=== PATIENT | male | born 1950 | race Caucasian/White ===

== ENCOUNTER → 2018-12-15 | Outpatient (CLI) | payer MEDICARE, OTHER ==
[~2018-12-15] MED LIST: DOC250 PO; HYDACE5 PO; LANTUS; METF500 PO; NATE60 PO; OXYACE5T PO; RXOXYACE PO; SITA25T2 PO; TAMS.4ER PO; VITS; ZOLP10 PO; [UNRECOGNIZED DRUG - REMARK]
== END | disposition home or self-care (01) ==
LOC: LAB SHORT 09:22 → LAB EV 09:22
DX: L03.032 Cellulitis of left toe (principal)
CPT/HCPCS: 87070; 87205

== ENCOUNTER → 2021-11-21 | Outpatient (CLI) | payer MEDICARE, OTHER | END | disposition home or self-care (01) | LOC: LAB SHORT 11:00 | DX: E11.40 Type 2 diabetes mellitus with diabetic neuropathy, unspecified (principal); E11.22 Type 2 diabetes mellitus with diabetic chronic kidney disease; I12.9 Hypertensive chronic kidney disease with stage 1 through stage 4 chronic kidney disease, or unspecified chronic kidney disease; N18.9 Chronic kidney disease, unspecified ==

== ENCOUNTER → 2022-03-06 | Outpatient (CLI) | payer MEDICARE, OTHER ==
[2022-03-06 10:53] LABS: Source, Urine Clean Catch
[2022-03-06 13:17] LABS: Appearance, Urine Clear (Clear); Bilirubin, Urine Neg (Neg); Blood, Urine 1+ (Neg); Color, Urine Yellow (P-Yellow); Glucose Qualitative, Urine 3+ (Neg); Ketones, Urine Neg (Neg); Leukocyte Esterase, Urine Neg (Neg); Nitrite, Urine Neg (Neg); Protein, Urine 1+ (Neg); Specific Gravity, Urine 1.025 (1.003-1.022); Urobilinogen, Urine NORM (Normal)
[2022-03-06 13:39] LABS: Bacteria Few /hpf; Squamous Epithelial Cells Rare /hpf (Few)
[2022-03-06 13:40] LABS: Yeast/Fungi Urine Rare /hpf
== END | disposition home or self-care (01) ==
LOC: LAB 10:48 → LAB SHORT 10:48
PROVIDERS: Internal Medicine
DX: R30.0 Dysuria (principal)
CPT/HCPCS: 81001

== ENCOUNTER → 2022-12-04 | Outpatient (CLI) | payer MEDICARE, OTHER ==
[~2022-12-04] MED LIST changes: +ATORVASTATIN CA20 MG PO; +BASAGLAR K100 UNIT/3 SC; +CARBIDOPA-LEVO1 EA15 PO; +DONEPEZIL HCL10 M1 PO; +MEMA10 PO; +ONDA4ODT MM; +PAXLOVID 150-11 EACH PO
[2022-12-04 11:43] LABS: BASOPHILS ABSOLUTE AUTO 0.02 K/mm3 (0.00-0.23); BASOPHILS PERCENT AUTO 0 % (0-2)
[2022-12-04 11:54] LABS: EOSINOPHILS ABSOLUTE AUTO 0.04 K/mm3 (0.00-0.68); EOSINOPHILS PERCENT AUTO 1 % (0-6); Hematocrit 38.2 % (37.0-53.0); Hemoglobin 13.1 g/dL (13.5-17.5); IMMATURE GRAN ABSOLUTE AUTO 0.02 K/mm3 (0.00-0.10); IMMATURE GRAN PERCENT AUTO 0 % (0-1); LYMPHOCYTES ABSOLUTE AUTO 0.93 K/mm3 (0.84-5.20); LYMPHOCYTES PERCENT AUTO 11 % (21-46); MONOCYTES ABSOLUTE AUTO 0.73 K/mm3 (0.16-1.47); MONOCYTES PERCENT AUTO 9 % (4-13); Mean Corpuscular HGB 28.7 pg (26.0-34.0); Mean Corpuscular HGB Conc 34.3 g/dL (31.5-36.5); Mean Corpuscular Volume 84 fL (80-100); Mean Platelet Volume 11.1 fL (9.1-12.4); NEUTROPHILS ABSOLUTE AUTO 6.39 K/mm3 (1.96-9.15); NEUTROPHILS PERCENT AUTO 79 % (41-73); Platelet Count 170 K/mm3 (150-400); RDW Coefficient Variation 13.4 % (11.7-14.2); Red Blood Cell Count 4.56 M/mm3 (4.30-5.90); White Blood Cell Count 8.13 K/mm3 (4.00-11.30)
[2022-12-04 12:05] LABS: Albumin, Blood 3.9 g/dL (3.4-5.0); Bilirubin, Total 0.7 mg/dL (0.1-1.0); Creatinine, Blood 1.82 mg/dL (0.60-1.20); Globulin, Blood 3.9 g/dL (2.2-4.0); Potassium, Blood 3.9 mmol/L (3.5-5.5); Total Protein, Blood 7.8 g/dL (6.4-8.2)
== END | disposition home or self-care (01) ==
LOC: LAB SHORT 11:12 → LAB 11:12
PROVIDERS: Nurse Practitioner Family
DX: R30.0 Dysuria (principal); R53.83 Other fatigue
CPT/HCPCS: 80053; 85025; 87086

== ENCOUNTER 2022-12-05 21:49 | Emergency (ER) | payer MEDICARE, OTHER ==
[~2022-12-05] VITALS: Ht 177.8 cm; Wt 77.1 kg
[~2022-12-05 21:49] MED LIST changes: -ATORVASTATIN CA20 MG PO; -BASAGLAR K100 UNIT/3 SC; -CARBIDOPA-LEVO1 EA15 PO; -DONEPEZIL HCL10 M1 PO; -MEMA10 PO; -ONDA4ODT MM; -PAXLOVID 150-11 EACH PO
[2022-12-05 22:15] LABS: BASOPHILS ABSOLUTE AUTO 0.03 K/mm3 (0.00-0.23); BASOPHILS PERCENT AUTO 1 % (0-2); EOSINOPHILS ABSOLUTE AUTO 0.02 K/mm3 (0.00-0.68); EOSINOPHILS PERCENT AUTO 0 % (0-6); Hematocrit 33.6 % (37.0-53.0); Hemoglobin 11.4 g/dL (13.5-17.5); IMMATURE GRAN ABSOLUTE AUTO 0.02 K/mm3 (0.00-0.10); IMMATURE GRAN PERCENT AUTO 0 % (0-1); LYMPHOCYTES ABSOLUTE AUTO 1.42 K/mm3 (0.84-5.20); LYMPHOCYTES PERCENT AUTO 24 % (21-46); MONOCYTES ABSOLUTE AUTO 0.81 K/mm3 (0.16-1.47); MONOCYTES PERCENT AUTO 14 % (4-13); Mean Corpuscular HGB 28.8 pg (26.0-34.0); Mean Corpuscular HGB Conc 33.9 g/dL (31.5-36.5); Mean Corpuscular Volume 85 fL (80-100); Mean Platelet Volume 10.2 fL (9.1-12.4); NEUTROPHILS ABSOLUTE AUTO 3.72 K/mm3 (1.96-9.15); NEUTROPHILS PERCENT AUTO 62 % (41-73); Platelet Count 143 K/mm3 (150-400); RDW Coefficient Variation 13.3 % (11.7-14.2); RDW Standard Deviation 41.7 fL (35.1-46.3); Red Blood Cell Count 3.96 M/mm3 (4.30-5.90); White Blood Cell Count 6.02 K/mm3 (4.00-11.30)
[2022-12-05 22:30] LABS: Source, Urine Straight Cath
[2022-12-05 22:32] LABS: Bilirubin, Urine Neg (Neg); Blood, Urine 2+ (Neg); Glucose Qualitative, Urine 2+ (Neg); Ketones, Urine Neg (Neg); Leukocyte Esterase, Urine Neg (Neg); Nitrite, Urine Neg (Neg); Protein, Urine 2+ (Neg); Specific Gravity, Urine 1.025 (1.003-1.022); Urobilinogen, Urine NORM (Normal)
[2022-12-05 22:37] LABS: Appearance, Urine Clear (Clear); Color, Urine Yellow (P-Yellow)
[2022-12-05 22:41] LABS: Amorphous Mod (0-Heavy); Bacteria Rare /hpf; Mucus Light (0-Heavy); Red Blood Cells, Urine 0-2 /hpf (0-2); Squamous Epithelial Cells Rare /hpf (Few); White Blood Cells, Urine 0-2 /hpf (0-5)
[2022-12-05 22:42] LABS: Albumin, Blood 3.3 g/dL (3.4-5.0); Bilirubin, Total 0.4 mg/dL (0.1-1.0); Bun/Creatinine Ratio 18.8 (12.0-20.0); Calcium, Blood 8.4 mg/dL (8.5-10.1); Creatinine, Blood 2.02 mg/dL (0.60-1.20); Globulin, Blood 3.4 g/dL (2.2-4.0); Potassium, Blood 3.8 mmol/L (3.5-5.5); Thyroid Stimulating Hormone 3.94 uIU/mL (0.360-4.800); Total Protein, Blood 6.7 g/dL (6.4-8.2)
[2022-12-05] MEDS ORDERED: ATORVASTATIN CA20 MG PO (23:17)
[2022-12-05] MEDS ORDERED: MEMA10 PO (23:17)
[2022-12-05] MEDS ORDERED: DONEPEZIL HCL10 M1 PO (23:18)
[2022-12-05] MEDS ORDERED: BASAGLAR K100 UNIT/3 SC (23:19)
[2022-12-05] MEDS ORDERED: CARBIDOPA-LEVO1 EA15 PO (23:19)
[2022-12-06 00:30] VITALS: BP 152/76
[2022-12-06] MEDS ORDERED: PAXLOVID 150-11 EACH PO (00:33)
[2022-12-06] MEDS ORDERED: ONDA4ODT MM (00:33)
== END 2022-12-06 01:00 | disposition home or self-care (01) ==
LOC: ER 21:49
PROVIDERS: Emergency Medicine
DX: S09.90XA Unspecified injury of head, initial encounter (principal); S62.397A Other fracture of fifth metacarpal bone, left hand, initial encounter for closed fracture; U07.1 COVID-19; R40.4 Transient alteration of awareness; W19.XXXA Unspecified fall, initial encounter; Z91.09 Other allergy status, other than to drugs and biological substances; Z88.0 Allergy status to penicillin; Z79.84 Long term (current) use of oral hypoglycemic drugs; Z79.899 Other long term (current) drug therapy; E11.9 Type 2 diabetes mellitus without complications; E78.5 Hyperlipidemia, unspecified; I10 Essential (primary) hypertension
CPT/HCPCS: 29125; 51701; 70450; 71045; 73130; 80053; 81001; 82140; 84443; 85025; 93005; 93010; 96374-59; 99285-25; J2405; J7030

== ENCOUNTER 2023-01-22 16:00 | Emergency (ER) | payer MEDICARE, OTHER ==
[~2023-01-22] VITALS: Ht 172.7 cm; Wt 70.3 kg
[~2023-01-22 16:00] MED LIST changes: +ATORVASTATIN CA20 MG PO; +BASAGLAR K100 UNIT/3 SC; +CARBIDOPA-LEVO1 EA15 PO; +DONEPEZIL HCL10 M1 PO; +MEMA10 PO; +ONDA4ODT MM; +PAXLOVID 150-11 EACH PO
[2023-01-22 16:08] VITALS: BP 132/82
== END 2023-01-22 18:51 | disposition home or self-care (01) ==
LOC: ER 16:00
DX: S01.81XA Laceration without foreign body of other part of head, initial encounter (principal); S01.01XA Laceration without foreign body of scalp, initial encounter; S01.20XA Unspecified open wound of nose, initial encounter; S62.395D Other fracture of fourth metacarpal bone, left hand, subsequent encounter for fracture with routine healing; S62.397D Other fracture of fifth metacarpal bone, left hand, subsequent encounter for fracture with routine healing; E11.9 Type 2 diabetes mellitus without complications; I10 Essential (primary) hypertension; G20.A1 Parkinson's disease without dyskinesia, without mention of fluctuations; G30.9 Alzheimer's disease, unspecified; F02.80 Dementia in other diseases classified elsewhere, unspecified severity, without behavioral disturbance, psychotic disturbance, mood disturbance, and anxiety; Z23 Encounter for immunization; Z91.041 Radiographic dye allergy status; Z88.0 Allergy status to penicillin; Z79.4 Long term (current) use of insulin; Z79.899 Other long term (current) drug therapy; W19.XXXA Unspecified fall, initial encounter; X58.XXXD Exposure to other specified factors, subsequent encounter; Y93.K1 Activity, walking an animal
CPT/HCPCS: 12011; 70450; 72125; 73130; 90471; 90715; 99284-25

== ENCOUNTER → 2023-02-01 | Outpatient (CLI) | payer MEDICARE, OTHER ==
[2023-02-01 19:50] LABS: BASOPHILS ABSOLUTE AUTO 0.03 K/mm3 (0.00-0.23); BASOPHILS PERCENT AUTO 1 % (0-2); EOSINOPHILS ABSOLUTE AUTO 0.23 K/mm3 (0.00-0.68); EOSINOPHILS PERCENT AUTO 4 % (0-6); Hematocrit 34.2 % (37.0-53.0); Hemoglobin 11.8 g/dL (13.5-17.5); IMMATURE GRAN ABSOLUTE AUTO 0.01 K/mm3 (0.00-0.10); IMMATURE GRAN PERCENT AUTO 0 % (0-1); LYMPHOCYTES ABSOLUTE AUTO 1.72 K/mm3 (0.84-5.20); LYMPHOCYTES PERCENT AUTO 29 % (21-46); MONOCYTES PERCENT AUTO 7 % (4-13); Mean Corpuscular HGB 29.2 pg (26.0-34.0); Mean Corpuscular HGB Conc 34.5 g/dL (31.5-36.5); Mean Corpuscular Volume 85 fL (80-100); Mean Platelet Volume 10.8 fL (9.1-12.4); NEUTROPHILS ABSOLUTE AUTO 3.54 K/mm3 (1.96-9.15); NEUTROPHILS PERCENT AUTO 60 % (41-73); Platelet Count 238 K/mm3 (150-400); RDW Coefficient Variation 13.4 % (11.7-14.2); RDW Standard Deviation 41.7 fL (35.1-46.3); Red Blood Cell Count 4.04 M/mm3 (4.30-5.90); White Blood Cell Count 5.93 K/mm3 (4.00-11.30)
[2023-02-01 20:30] LABS: Albumin, Blood 3.6 g/dL (3.4-5.0); Albumin/Globulin Ratio 1.1 (0.8-1.8); Bilirubin, Total 0.3 mg/dL (0.1-1.0); Bun/Creatinine Ratio 19.7 (12.0-20.0); Calcium, Blood 8.8 mg/dL (8.5-10.1); Creatinine, Blood 1.88 mg/dL (0.60-1.20); Globulin, Blood 3.3 g/dL (2.2-4.0); Magnesium, Blood 1.8 mg/dL (1.6-2.4); Potassium, Blood 3.9 mmol/L (3.5-5.5); Total Protein, Blood 6.9 g/dL (6.4-8.2)
== END ==
LOC: LAB SHORT 18:40 → LAB 18:40
PROVIDERS: Hospitalist
DX: G93.41 Metabolic encephalopathy (principal); R32 Unspecified urinary incontinence
CPT/HCPCS: 80053; 83735; 85025; 87086

== ENCOUNTER 2023-02-08 11:07 | Emergency (ER) | payer MEDICARE, OTHER ==
[~2023-02-08] VITALS: Ht 177.8 cm; Wt 83.9 kg
[2023-02-08 12:13] LABS: BASOPHILS ABSOLUTE AUTO 0.03 K/mm3 (0.00-0.23); BASOPHILS PERCENT AUTO 0 % (0-2); EOSINOPHILS ABSOLUTE AUTO 0.04 K/mm3 (0.00-0.68); EOSINOPHILS PERCENT AUTO 1 % (0-6); Hematocrit 38.3 % (37.0-53.0); Hemoglobin 12.7 g/dL (13.5-17.5); IMMATURE GRAN ABSOLUTE AUTO 0.02 K/mm3 (0.00-0.10); IMMATURE GRAN PERCENT AUTO 0 % (0-1); LYMPHOCYTES ABSOLUTE AUTO 1.12 K/mm3 (0.84-5.20); LYMPHOCYTES PERCENT AUTO 15 % (21-46); MONOCYTES ABSOLUTE AUTO 0.45 K/mm3 (0.16-1.47); MONOCYTES PERCENT AUTO 6 % (4-13); Mean Corpuscular HGB 28.3 pg (26.0-34.0); Mean Corpuscular HGB Conc 33.2 g/dL (31.5-36.5); Mean Corpuscular Volume 85 fL (80-100); Mean Platelet Volume 10.3 fL (9.1-12.4); NEUTROPHILS ABSOLUTE AUTO 5.96 K/mm3 (1.96-9.15); NEUTROPHILS PERCENT AUTO 78 % (41-73); Platelet Count 249 K/mm3 (150-400); RDW Coefficient Variation 13.1 % (11.7-14.2); RDW Standard Deviation 40.7 fL (35.1-46.3); Red Blood Cell Count 4.49 M/mm3 (4.30-5.90); White Blood Cell Count 7.62 K/mm3 (4.00-11.30)
[2023-02-08 12:25] LABS: Albumin, Blood 4.2 g/dL (3.4-5.0); Bilirubin, Total 0.6 mg/dL (0.1-1.0); Bun/Creatinine Ratio 17.9 (12.0-20.0); Calcium, Blood 9.4 mg/dL (8.5-10.1); Creatinine, Blood 2.01 mg/dL (0.60-1.20); Potassium, Blood 3.8 mmol/L (3.5-5.5); Total Protein, Blood 8.2 g/dL (6.4-8.2)
[2023-02-08 13:24] LABS: Source, Urine Straight Cath
[2023-02-08 13:29] LABS: Appearance, Urine Clear (Clear); Bilirubin, Urine Neg (Neg); Blood, Urine 4+ (Neg); Color, Urine Yellow (P-Yellow); Glucose Qualitative, Urine 3+ (Neg); Ketones, Urine Neg (Neg); Leukocyte Esterase, Urine Neg (Neg); Nitrite, Urine Neg (Neg); Protein, Urine 2+ (Neg); Specific Gravity, Urine 1.015 (1.003-1.022); Urobilinogen, Urine NORM (Normal)
[2023-02-08 13:43] LABS: Bacteria Not Seen /hpf; Squamous Epithelial Cells Not Seen /hpf (Few); White Blood Cells, Urine Not Seen /hpf (0-5)
[2023-02-08 16:00] VITALS: BP 138/79
== END 2023-02-08 16:18 | disposition home or self-care (01) ==
LOC: ER 11:07
PROVIDERS: Emergency Medicine
DX: S09.90XA Unspecified injury of head, initial encounter (principal); F03.90 Unspecified dementia, unspecified severity, without behavioral disturbance, psychotic disturbance, mood disturbance, and anxiety; G20.C Parkinsonism, unspecified; W18.30XA Fall on same level, unspecified, initial encounter; Z91.041 Radiographic dye allergy status; Z88.0 Allergy status to penicillin; Z79.4 Long term (current) use of insulin; E11.9 Type 2 diabetes mellitus without complications; I10 Essential (primary) hypertension; E78.5 Hyperlipidemia, unspecified
CPT/HCPCS: 51701; 70450; 80053; 81001; 84484; 85025; 93005; 93010; 99285-25

== ENCOUNTER 2023-03-14 16:30 | Emergency (ER) | payer MEDICARE, OTHER ==
[~2023-03-14] VITALS: Ht 180.3 cm; Wt 77.1 kg
[2023-03-14 16:40] VITALS: BP 142/85
[2023-03-14 17:18] LABS: BASOPHILS ABSOLUTE AUTO 0.03 K/mm3 (0.00-0.23); BASOPHILS PERCENT AUTO 1 % (0-2); EOSINOPHILS ABSOLUTE AUTO 0.13 K/mm3 (0.00-0.68); EOSINOPHILS PERCENT AUTO 3 % (0-6); Hemoglobin 10.9 g/dL (13.5-17.5); IMMATURE GRAN ABSOLUTE AUTO 0.01 K/mm3 (0.00-0.10); IMMATURE GRAN PERCENT AUTO 0 % (0-1); LYMPHOCYTES ABSOLUTE AUTO 1.27 K/mm3 (0.84-5.20); LYMPHOCYTES PERCENT AUTO 24 % (21-46); MONOCYTES ABSOLUTE AUTO 0.36 K/mm3 (0.16-1.47); MONOCYTES PERCENT AUTO 7 % (4-13); Mean Corpuscular HGB 28.7 pg (26.0-34.0); Mean Corpuscular Volume 87 fL (80-100); Mean Platelet Volume 10.4 fL (9.1-12.4); NEUTROPHILS ABSOLUTE AUTO 3.43 K/mm3 (1.96-9.15); NEUTROPHILS PERCENT AUTO 66 % (41-73); Platelet Count 221 K/mm3 (150-400); RDW Coefficient Variation 13.4 % (11.7-14.2); RDW Standard Deviation 42.1 fL (35.1-46.3); White Blood Cell Count 5.23 K/mm3 (4.00-11.30)
[2023-03-14 17:23] LABS: Albumin, Blood 3.3 g/dL (3.4-5.0); Bilirubin, Total 0.3 mg/dL (0.1-1.0); Bun/Creatinine Ratio 19.1 (12.0-20.0); Calcium, Blood 8.3 mg/dL (8.5-10.1); Creatinine, Blood 1.88 mg/dL (0.60-1.20); Globulin, Blood 3.3 g/dL (2.2-4.0); Potassium, Blood 4.4 mmol/L (3.5-5.5); Total Protein, Blood 6.6 g/dL (6.4-8.2)
== END 2023-03-14 18:30 | disposition home or self-care (01) ==
LOC: ER 16:30
PROVIDERS: Student in an Organized Health Care Education/Training Program
DX: E11.65 Type 2 diabetes mellitus with hyperglycemia (principal); I10 Essential (primary) hypertension; E78.5 Hyperlipidemia, unspecified; G20.A1 Parkinson's disease without dyskinesia, without mention of fluctuations; G30.9 Alzheimer's disease, unspecified; F02.80 Dementia in other diseases classified elsewhere, unspecified severity, without behavioral disturbance, psychotic disturbance, mood disturbance, and anxiety; Z79.899 Other long term (current) drug therapy; Z79.4 Long term (current) use of insulin; Z88.0 Allergy status to penicillin; Z88.8 Allergy status to other drugs, medicaments and biological substances; Z91.041 Radiographic dye allergy status
CPT/HCPCS: 80053; 82947; 85025; 93005; 93010; 99285-25

== ENCOUNTER → 2023-04-26 | Outpatient (CLI) | payer MEDICARE, OTHER ==
[2023-04-28 11:25] LABS: Appearance, Urine Clear (Clear); Bilirubin, Urine Neg (Neg); Blood, Urine 1+ (Neg); Color, Urine Yellow (P-Yellow); Glucose Qualitative, Urine 3+ (Neg); Ketones, Urine Neg (Neg); Leukocyte Esterase, Urine Neg (Neg); Nitrite, Urine Neg (Neg); Protein, Urine 1+ (Neg); Urobilinogen, Urine NORM (Normal)
[2023-04-28 11:44] LABS: Amorphous Light (0-Heavy); Bacteria Rare /hpf; Mucus Light (0-Heavy); Squamous Epithelial Cells Rare /hpf (Few); White Blood Cells, Urine 0-2 /hpf (0-5)
[2023-04-28 11:45] LABS: Hyaline Casts 0-2 /lpf (0-2); Triple Phosphate Crystals Rare /hpf
== END ==
LOC: LAB SHORT 19:15 → LAB 19:15
PROVIDERS: Internal Medicine
DX: N39.0 Urinary tract infection, site not specified (principal)
CPT/HCPCS: 81001

== ENCOUNTER → 2023-07-09 | Outpatient (CLI) | payer MEDICARE, OTHER ==
[2023-07-09 18:55] LABS: Hematocrit 35.7 % (37.0-53.0); Hemoglobin 12.2 g/dL (13.5-17.5); Mean Corpuscular HGB 29.8 pg (26.0-34.0); Mean Corpuscular HGB Conc 34.2 g/dL (31.5-36.5); Mean Corpuscular Volume 87 fL (80-100); Mean Platelet Volume 10.6 fL (9.1-12.4); Platelet Count 201 K/mm3 (150-400); RDW Coefficient Variation 13.6 % (11.7-14.2); RDW Standard Deviation 43.7 fL (35.1-46.3)
[2023-07-09 19:56] LABS: Alanine Aminotransfer (ALT/SGP 17 U/L (12-78); Albumin, Blood 3.9 g/dL (3.4-5.0); Albumin/Globulin Ratio 1.3 (0.8-1.8); Alk Phos 62 U/L (50-136); Anion Gap 8 mmol/L (3-11); Aspartate Aminotrans (AST/SGOT 28 U/L (12-37); Bilirubin, Total 0.3 mg/dL (0.1-1.0); Blood Urea Nitrogen 31 mg/dL (8-24); Bun/Creatinine Ratio 17.8 (12.0-20.0); CHOL/HDL RATIO 2.3; CO2, Blood 31 mmol/L (21-32); Calcium, Blood 9.1 mg/dL (8.5-10.1); Chloride, Blood 109 mmol/L (98-108); Cholesterol 115 mg/dL (50-200); Creatinine, Blood 1.74 mg/dL (0.60-1.20); Globulin, Blood 2.9 g/dL (2.2-4.0); Glomerular Filtration Rate 41 (60-); Glucose, Blood 183 mg/dL (70-99); HDL Cholesterol 49 mg/dL (>39); Low Density Lipoprotein Chol 51 mg/dL (0-110); Potassium, Blood 4.2 mmol/L (3.5-5.5); Sodium, Blood 144 mmol/L (136-145); Total Protein, Blood 6.8 g/dL (6.4-8.2); Triglycerides 76 mg/dL (30-160); Very Low Density Lipoprot Chol 15 mg/dL (6-32)
== END ==
LOC: LAB 18:31 → LAB SHORT 18:31
PROVIDERS: Internal Medicine
DX: E78.00 Pure hypercholesterolemia, unspecified (principal); F02.B3 Dementia in other diseases classified elsewhere, moderate, with mood disturbance; E11.65 Type 2 diabetes mellitus with hyperglycemia
CPT/HCPCS: 80053; 80061; 83036; 84443; 85027

== ENCOUNTER → 2024-01-12 | Outpatient (CLI) | payer MEDICARE, OTHER ==
[2024-01-12 19:59] LABS: Albumin, Blood 3.7 g/dL (3.4-5.0); Anion Gap 7 mmol/L (3-11); Blood Urea Nitrogen 46 mg/dL (8-24); Bun/Creatinine Ratio 25.1 (12.0-20.0); CO2, Blood 28 mmol/L (21-32); Calcium, Blood 8.8 mg/dL (8.5-10.1); Chloride, Blood 110 mmol/L (98-108); Creatinine, Blood 1.83 mg/dL (0.60-1.20); Glomerular Filtration Rate 39 (60-); Glucose, Blood 156 mg/dL (70-99); Phosphorus, Blood 3.5 mg/dL (2.5-4.9); Potassium, Blood 4.2 mmol/L (3.5-5.5); Sodium, Blood 141 mmol/L (136-145)
== END ==
LOC: LAB SHORT 17:29 → LAB 17:29
PROVIDERS: Internal Medicine
DX: E11.22 Type 2 diabetes mellitus with diabetic chronic kidney disease (principal)
CPT/HCPCS: 80069

== ENCOUNTER 2024-03-13 15:40 | Emergency (ER) | payer OTHER, MEDICARE ==
[~2024-03-13] VITALS: Ht 182.9 cm; Wt 81.7 kg
[2024-03-13] MEDS ORDERED: OLAN5 PO (18:29)
[2024-03-13 20:00] VITALS: BP 156/91
== END 2024-03-13 20:10 | disposition home or self-care (01) ==
LOC: ER 15:40
DX: R51.9 Headache, unspecified (principal); G20.A1 Parkinson's disease without dyskinesia, without mention of fluctuations; F02.80 Dementia in other diseases classified elsewhere, unspecified severity, without behavioral disturbance, psychotic disturbance, mood disturbance, and anxiety; E11.9 Type 2 diabetes mellitus without complications; I10 Essential (primary) hypertension; G30.9 Alzheimer's disease, unspecified; Z88.0 Allergy status to penicillin; Z91.041 Radiographic dye allergy status; Z79.899 Other long term (current) drug therapy; Z79.4 Long term (current) use of insulin; W01.0XXA Fall on same level from slipping, tripping and stumbling without subsequent striking against object, initial encounter
CPT/HCPCS: 70450; 72125; 82947; 99284-25

== ENCOUNTER → 2024-04-26 | Outpatient (CLI) | payer MEDICARE, OTHER ==
[~2024-04-26] MED LIST changes: +OLAN5 PO
[2024-04-26 14:33] LABS: Appearance, Urine Hazy (Clear); Bilirubin, Urine Neg (Neg); Blood, Urine 4+ (Neg); Color, Urine Yellow (P-Yellow); Glucose Qualitative, Urine Neg (Neg); Ketones, Urine Neg (Neg); Leukocyte Esterase, Urine 3+ (Neg); Nitrite, Urine Neg (Neg); Protein, Urine 3+ (Neg); Specific Gravity, Urine 1.015 (1.003-1.022); Urobilinogen, Urine NORM (Normal)
[2024-04-26 14:48] LABS: White Blood Cells, Urine 50-100 /hpf (0-5)
[2024-04-26 14:49] LABS: Bacteria Many /hpf; Renal Epithelial Rare /hpf (0-Rare); Squamous Epithelial Cells Few /hpf (Few)
== END ==
LOC: LAB 11:10 → LAB SHORT 11:10
PROVIDERS: Internal Medicine
DX: N39.0 Urinary tract infection, site not specified (principal)
CPT/HCPCS: 81001; 87077; 87086; 87186

== ENCOUNTER 2024-05-31 15:11 | Emergency (ER) | payer OTHER, MEDICARE ==
[~2024-05-31] VITALS: Ht 182.9 cm; Wt 72.6 kg
[2024-05-31 16:02] LABS: BASOPHILS ABSOLUTE AUTO 0.02 K/mm3 (0.00-0.23); BASOPHILS PERCENT AUTO 0 % (0-2); EOSINOPHILS ABSOLUTE AUTO 0.09 K/mm3 (0.00-0.68); EOSINOPHILS PERCENT AUTO 1 % (0-6); Hematocrit 34.3 % (37.0-53.0); Hemoglobin 11.4 g/dL (13.5-17.5); IMMATURE GRAN ABSOLUTE AUTO 0.03 K/mm3 (0.00-0.10); IMMATURE GRAN PERCENT AUTO 0 % (0-1); LYMPHOCYTES ABSOLUTE AUTO 1.55 K/mm3 (0.84-5.20); LYMPHOCYTES PERCENT AUTO 17 % (21-46); MONOCYTES ABSOLUTE AUTO 0.75 K/mm3 (0.16-1.47); MONOCYTES PERCENT AUTO 8 % (4-13); Mean Corpuscular HGB 29.5 pg (26.0-34.0); Mean Corpuscular HGB Conc 33.2 g/dL (31.5-36.5); Mean Corpuscular Volume 89 fL (80-100); Mean Platelet Volume 10.5 fL (9.1-12.4); NEUTROPHILS ABSOLUTE AUTO 6.75 K/mm3 (1.96-9.15); NEUTROPHILS PERCENT AUTO 73 % (41-73); Platelet Count 159 K/mm3 (150-400); RDW Coefficient Variation 13.8 % (11.7-14.2); RDW Standard Deviation 44.6 fL (35.1-46.3); Red Blood Cell Count 3.86 M/mm3 (4.30-5.90); White Blood Cell Count 9.19 K/mm3 (4.00-11.30)
[2024-05-31 16:19] LABS: Albumin, Blood 3.4 g/dL (3.4-5.0); Albumin/Globulin Ratio 0.9 (0.8-1.8); Bilirubin, Total 0.6 mg/dL (0.1-1.0); Creatinine, Blood 1.85 mg/dL (0.60-1.20); Free Thyroxine 0.79 ng/dL (0.70-1.60); Globulin, Blood 3.8 g/dL (2.2-4.0); Potassium, Blood 4.1 mmol/L (3.5-5.5); Thyroid Stimulating Hormone 2.38 uIU/mL (0.360-4.800); Total Protein, Blood 7.2 g/dL (6.4-8.2)
[2024-05-31 19:10] VITALS: BP 114/71
== END 2024-05-31 19:13 | disposition home or self-care (01) ==
LOC: ER 15:11
PROVIDERS: Emergency Medicine
DX: Z04.3 Encounter for examination and observation following other accident (principal); E11.9 Type 2 diabetes mellitus without complications; I10 Essential (primary) hypertension; E78.5 Hyperlipidemia, unspecified; G20.A1 Parkinson's disease without dyskinesia, without mention of fluctuations; G30.9 Alzheimer's disease, unspecified; F02.80 Dementia in other diseases classified elsewhere, unspecified severity, without behavioral disturbance, psychotic disturbance, mood disturbance, and anxiety; Z91.041 Radiographic dye allergy status; Z88.0 Allergy status to penicillin; Z79.4 Long term (current) use of insulin; Z79.899 Other long term (current) drug therapy; W18.30XA Fall on same level, unspecified, initial encounter
CPT/HCPCS: 70450; 71045; 72170; 80053; 84439; 84443; 85025; 99285-25

== ENCOUNTER → 2024-06-08 | Outpatient (CLI) | payer MEDICARE, OTHER ==
[2024-06-09 15:11] LABS: Appearance, Urine Hazy (Clear); Bilirubin, Urine Neg (Neg); Blood, Urine 3+ (Neg); Color, Urine Yellow (P-Yellow); Glucose Qualitative, Urine Neg (Neg); Ketones, Urine Neg (Neg); Leukocyte Esterase, Urine 3+ (Neg); Nitrite, Urine Pos (Neg); Protein, Urine 3+ (Neg); Specific Gravity, Urine 1.015 (1.003-1.022); Urobilinogen, Urine NORM (Normal)
[2024-06-09 15:25] LABS: White Blood Cells, Urine TNTC /hpf (0-5)
[2024-06-09 15:26] LABS: Bacteria Many /hpf; Squamous Epithelial Cells Not Seen /hpf (Few)
== END ==
LOC: LAB 13:49 → LAB SHORT 13:49
PROVIDERS: Internal Medicine
DX: N39.0 Urinary tract infection, site not specified (principal)
CPT/HCPCS: 81001; 87077; 87086; 87186

== ENCOUNTER → 2024-07-11 | Outpatient (CLI) | payer MEDICARE, OTHER ==
[2024-07-11 13:25] LABS: Appearance, Urine Cloudy (Clear); Bilirubin, Urine Neg (Neg); Blood, Urine 3+ (Neg); Color, Urine Yellow (P-Yellow); Glucose Qualitative, Urine Neg (Neg); Ketones, Urine Neg (Neg); Leukocyte Esterase, Urine 3+ (Neg); Nitrite, Urine Pos (Neg); Protein, Urine 2+ (Neg); Specific Gravity, Urine 1.015 (1.003-1.022); Urobilinogen, Urine NORM (Normal)
[2024-07-11 13:39] LABS: White Blood Cells, Urine 50-100 /hpf (0-5)
[2024-07-11 13:40] LABS: Bacteria Many /hpf; Mucus Light (0-Heavy); Red Blood Cells, Urine 0-2 /hpf (0-2); Squamous Epithelial Cells Rare /hpf (Few)
== END ==
LOC: LAB 12:29 → LAB SHORT 12:29
PROVIDERS: Internal Medicine
DX: N39.0 Urinary tract infection, site not specified (principal)
CPT/HCPCS: 81001; 87077; 87086; 87186

== ENCOUNTER 2024-07-17 11:04 | Inpatient (IN) | payer MEDICARE, OTHER ==
[~2024-07-17] VITALS: Ht 182.9 cm; Wt 69.4 kg
[2024-07-17 11:44] LABS: BASOPHILS ABSOLUTE AUTO 0.04 K/mm3 (0.00-0.23); BASOPHILS PERCENT AUTO 0 % (0-2); EOSINOPHILS ABSOLUTE AUTO 0.04 K/mm3 (0.00-0.68); EOSINOPHILS PERCENT AUTO 0 % (0-6); Hematocrit 36.3 % (37.0-53.0); Hemoglobin 12.2 g/dL (13.5-17.5); IMMATURE GRAN ABSOLUTE AUTO 0.06 K/mm3 (0.00-0.10); IMMATURE GRAN PERCENT AUTO 0 % (0-1); LYMPHOCYTES ABSOLUTE AUTO 1.08 K/mm3 (0.84-5.20); LYMPHOCYTES PERCENT AUTO 7 % (21-46); MONOCYTES PERCENT AUTO 6 % (4-13); Mean Corpuscular HGB 29.3 pg (26.0-34.0); Mean Corpuscular HGB Conc 33.6 g/dL (31.5-36.5); Mean Corpuscular Volume 87 fL (80-100); NEUTROPHILS ABSOLUTE AUTO 14.16 K/mm3 (1.96-9.15); NEUTROPHILS PERCENT AUTO 87 % (41-73); Platelet Count 207 K/mm3 (150-400); RDW Coefficient Variation 13.6 % (11.7-14.2); RDW Standard Deviation 43.7 fL (35.1-46.3); Red Blood Cell Count 4.16 M/mm3 (4.30-5.90); White Blood Cell Count 16.28 K/mm3 (4.00-11.30)
[2024-07-17 12:09] LABS: Source, Urine Straight Cath
[2024-07-17 12:17] LABS: Appearance, Urine Cloudy (Clear); Bilirubin, Urine Neg (Neg); Blood, Urine 4+ (Neg); Glucose Qualitative, Urine Neg (Neg); Ketones, Urine Neg (Neg); Leukocyte Esterase, Urine 3+ (Neg); Nitrite, Urine Pos (Neg); Protein, Urine 3+ (Neg); Urobilinogen, Urine NORM (Normal)
[2024-07-17 12:24] LABS: Albumin, Blood 3.4 g/dL (3.4-5.0); Albumin/Globulin Ratio 0.9 (0.8-1.8); Bilirubin, Total 0.7 mg/dL (0.1-1.0); Bun/Creatinine Ratio 20.1 (12.0-20.0); Calcium, Blood 9.2 mg/dL (8.5-10.1); Creatinine, Blood 1.64 mg/dL (0.60-1.20); Globulin, Blood 3.9 g/dL (2.2-4.0); Potassium, Blood 4.1 mmol/L (3.5-5.5); Total Protein, Blood 7.3 g/dL (6.4-8.2)
[2024-07-17 12:26] LABS: Color, Urine Pale Yellow (P-Yellow)
[2024-07-17 12:27] LABS: White Blood Cells, Urine 50-100 /hpf (0-5)
[2024-07-17 12:28] LABS: Bacteria Many /hpf; Red Blood Cells, Urine 25-50 /hpf (0-2); Squamous Epithelial Cells Not Seen /hpf (Few)
[2024-07-17] MEDS ORDERED: Piperacillin/Tazobactam Sod 3.375 GM in NS 100 ML IV ONE (13:20)
[2024-07-17] MEDS ORDERED: ACET500 PO (13:53)
[2024-07-17] MEDS ORDERED: Mucinex600 MG PO (13:54)
[2024-07-17] MEDS ORDERED: LOPE2C PO (13:55)
[2024-07-17] MEDS ORDERED: MELA3 PO (13:55)
[2024-07-17] MEDS ORDERED: MIRT30 PO (13:56)
[2024-07-17] MEDS ORDERED: PROBIOTIC1 EA15 (13:58)
[2024-07-17] MEDS ORDERED: PSYLLIUM PO (13:58)
[2024-07-17] MEDS ORDERED: NS 1,000 ML IV SCH (14:50)
[2024-07-17] MEDS ORDERED: Meropenem 1,000 MG in NS 100 ML IV SCH (15:00)
[2024-07-17 20:19] VITALS: BP 119/66
[2024-07-17] MEDS ORDERED: Lactobacil 2-S.Thermo-Bifido 1 1 Cap PO SCH (21:00)
[2024-07-18 04:20] VITALS: BP 113/59
--- NOTE | 2024-07-18 05:23 | NUR ---
SUMMARY: PT ALERT TO SELF ONLY AND IS VERY DROWSY, ROUSING TO PAINFUL STIMULI ONLY THEN QUICKLY FALLING BACK TO SLEEP. HE WAS MOSTLY NONVERBAL BUT SAID "OUCH" WHEN CBG TESTED AND "COLD" DURING [facility] C[facility]. HE'S BEDREST AT PRESENT R/T INCREASED WEAKNESS, RECENT FALLS AND HEIGHTENED AMS FROM BASELINE. HS MEDS HELD D/T NOT BEING WAKEFUL ENOUGH TO SAFELY SWALLOW. PARKINSONIAN TREMOR AND EXTREMITY SPASITICITY OBSERVED. TURN SCHEDULE MAINTAINED AND ATTENDS CHANGED PRN FOR INCONTINENCE. NS INFUSES AT 100 ML/HR AND IV ABX RECEIVED PER EMAR. NO ACUTE CHANGES, VSS/AFEBRILE. WILL REPORT TO DAY RN.
[2024-07-18 06:09] LABS: BASOPHILS ABSOLUTE AUTO 0.03 K/mm3 (0.00-0.23); BASOPHILS PERCENT AUTO 0 % (0-2); EOSINOPHILS PERCENT AUTO 0 % (0-6); Hematocrit 31.8 % (37.0-53.0); Hemoglobin 10.6 g/dL (13.5-17.5); IMMATURE GRAN ABSOLUTE AUTO 0.09 K/mm3 (0.00-0.10); IMMATURE GRAN PERCENT AUTO 1 % (0-1); LYMPHOCYTES ABSOLUTE AUTO 0.95 K/mm3 (0.84-5.20); LYMPHOCYTES PERCENT AUTO 6 % (21-46); MONOCYTES ABSOLUTE AUTO 0.84 K/mm3 (0.16-1.47); MONOCYTES PERCENT AUTO 6 % (4-13); Mean Corpuscular HGB 28.7 pg (26.0-34.0); Mean Corpuscular HGB Conc 33.3 g/dL (31.5-36.5); Mean Corpuscular Volume 86 fL (80-100); Mean Platelet Volume 9.9 fL (9.1-12.4); NEUTROPHILS ABSOLUTE AUTO 12.97 K/mm3 (1.96-9.15); NEUTROPHILS PERCENT AUTO 87 % (41-73); Platelet Count 160 K/mm3 (150-400); RDW Coefficient Variation 13.7 % (11.7-14.2); RDW Standard Deviation 43.4 fL (35.1-46.3); Red Blood Cell Count 3.69 M/mm3 (4.30-5.90); White Blood Cell Count 14.88 K/mm3 (4.00-11.30)
[2024-07-18 06:34] LABS: Bun/Creatinine Ratio 18.4 (12.0-20.0); Calcium, Blood 8.4 mg/dL (8.5-10.1); Creatinine, Blood 1.63 mg/dL (0.60-1.20); Potassium, Blood 3.6 mmol/L (3.5-5.5)
[2024-07-18] MEDS ORDERED: Acetaminophen 500 MG Tab PO PRN (06:45)
[2024-07-18] MEDS ORDERED: OLANZapine 5 MG Tab PO PRN (06:45)
[2024-07-18] MEDS ORDERED: Loperamide HCl 2 MG Cap PO PRN (06:45)
[2024-07-18] MEDS ORDERED: GuaiFENesin 600 MG TabCR PO PRN (06:45)
[2024-07-18 07:27] VITALS: BP 102/58
[2024-07-18] MEDS ORDERED: NS 1,000 ML IV SCH (08:40)
[2024-07-18] MEDS ORDERED: Levodopa/Carbidopa 100 / 25 MG Tab PO SCH (09:00)
[2024-07-18] MEDS ORDERED: Donepezil HCl 5 MG Tab PO SCH (09:00)
[2024-07-18] MEDS ORDERED: Memantine HCL 5 MG Tab PO SCH (09:00)
[2024-07-18] MEDS ORDERED: Atorvastatin 10 MG Tab PO SCH (09:00)
[2024-07-18] MEDS ORDERED: Enoxaparin 40 MG/0.4 ML SYR SC SCH (09:00)
[2024-07-18 16:01] VITALS: BP 108/64
--- NOTE | 2024-07-18 17:42 | NUR ---
PATIENT A/O TO SELF, MORE ALERT THIS AFTERNOON. AT BEDSIDE FOR MOST OF THE DAY. WORKED WITH ST AND DOES WELL WITH MEALS IF FED. MEDICATIONS CRUSHED IN APPLESAUCE. PATIENT STILL HAVING DIFFICULTY FOLLOWING COMMANDS. VSS, ON RA. NO S/S OF PAIN ASSESSED. INCONTINENT OF BOWEL/BLADDER. NO NEW CONCERNS THIS SHIFT. FALL PRECAUTIONS IN PLACE.
[2024-07-18 19:11] VITALS: BP 113/83
[2024-07-18] MEDS ORDERED: Melatonin 3 MG Tab PO SCH (21:00)
[2024-07-18] MEDS ORDERED: Mirtazapine 30 MG Tab PO SCH (21:00)
[2024-07-19 03:33] VITALS: BP 111/51
--- NOTE | 2024-07-19 06:08 | NUR ---
SHIFT SUMMARY S/P ADMIT R/T RECURRENT UTI. NO ACUTE CHANGES OVERNIGHT. VSS. MENTATION UNCHANGED FROM BEGINNING OF SHIFT, A&O TO SELF/, GROSSLY NON-VERBAL, RESPONDS TO PHYSCIAL STIMULI, UNABLE TO VERBALIZE NEEDS. TOLERATING DIET - TAKES MEDS CRUSHED IN APPLESAUCE c FREQUENT REDIRECTION. IV FLUIDS/ABX INFUSING PER EMAR. VOIDING, INCONT, ATTENDS IN USE. NO CLEAR PAIN c ASSESSMENT. BED ALARM IN USE. CALL LIGHT IN REACH, WILL REPORT TO DAY RN.
[2024-07-19 06:51] LABS: Bun/Creatinine Ratio 18.4 (12.0-20.0); Calcium, Blood 7.7 mg/dL (8.5-10.1); Creatinine, Blood 1.85 mg/dL (0.60-1.20); Potassium, Blood 4.2 mmol/L (3.5-5.5)
[2024-07-19 07:47] VITALS: BP 97/80
[2024-07-19] MEDS ORDERED: Acetaminophen 325 MG Supp PR PRN (09:25)
[2024-07-19 09:29] LABS: BASOPHILS ABSOLUTE AUTO 0.02 K/mm3 (0.00-0.23); BASOPHILS PERCENT AUTO 0 % (0-2); EOSINOPHILS ABSOLUTE AUTO 0.01 K/mm3 (0.00-0.68); EOSINOPHILS PERCENT AUTO 0 % (0-6); Hematocrit 30.3 % (37.0-53.0); Hemoglobin 9.8 g/dL (13.5-17.5); IMMATURE GRAN ABSOLUTE AUTO 0.12 K/mm3 (0.00-0.10); IMMATURE GRAN PERCENT AUTO 1 % (0-1); LYMPHOCYTES ABSOLUTE AUTO 0.53 K/mm3 (0.84-5.20); LYMPHOCYTES PERCENT AUTO 5 % (21-46); MONOCYTES ABSOLUTE AUTO 0.36 K/mm3 (0.16-1.47); MONOCYTES PERCENT AUTO 3 % (4-13); Mean Corpuscular HGB 28.2 pg (26.0-34.0); Mean Corpuscular HGB Conc 32.3 g/dL (31.5-36.5); Mean Corpuscular Volume 87 fL (80-100); NEUTROPHILS ABSOLUTE AUTO 9.63 K/mm3 (1.96-9.15); NEUTROPHILS PERCENT AUTO 90 % (41-73); Platelet Count 145 K/mm3 (150-400); RDW Coefficient Variation 13.7 % (11.7-14.2); RDW Standard Deviation 43.7 fL (35.1-46.3); Red Blood Cell Count 3.48 M/mm3 (4.30-5.90); White Blood Cell Count 10.67 K/mm3 (4.00-11.30)
--- NOTE | 2024-07-19 16:41 | NUR ---
SHIFT SUMMARY PT REMAINING ONLY RESPONSIVE TO PAINFUL AND COLD STIMULI - NOT WAKING OR OPENING EYES T/O SHIFT. NO ORAL INTAKE - MADE NPO DUE TO DECREASED LEVEL OF CONSCIOUSNESS. PALLIATIVE CARE DISCUSSED OPTIONS WITH FAMILY TODAY - FAMILY WOULD LIKE TO SEE IF PT WAKENS AND REPEAT BLOOD SULTURE RESULTS. PT IS DNR. INCONTINENT OF B/B, REMAINS ON BEDREST. ORAL CARE Q4H. REPOSITIONING Q2H. PT NO EVIDENCE OF DISCOMFORT AT REST. PT CURRENTLY SLEEPING WITH BED IN LOWEST POSITON AND CALL LIGHT WITHIN REACH. BED ALARM ON. SPOUSE AT BEDSIDE.
--- NOTE | 2024-07-19 16:51 | NUR ---
ASSESSED PATIENT THIS MORNING. AT BEDSIDE REQUESTING TO SPEAK WITH PROVIDER. PROVIDER NOTIFIED, BUT HAD TO LEAVE BEFORE PROVIDER ARRIVED. BACK THIS AFTERNOON. MILLIE STONE DISCUSSED PATIENTS DECLINE AND THE PROSPECT OF HOSPICE. CALLED OFFICE AND REQUESTED CARE FACILITY LIST, BROUGHT TO PATIENTS ROOM. CONTINUED HOSPICE CONVERSATION AND RELAYED SERVICES THAT WOULD BE PROVIDED AND DISCUSSED SHIFT IN CARE. DISCUSSED WITH PROVIDER. FAMILY WILL DISCUSS AND COME IN TOMORROW TO CONTINUE CONVERSATION
[2024-07-19 16:53] VITALS: BP 112/59
--- NOTE | 2024-07-19 17:59 | NUR ---
MEPILEX ON COCCYX CHANGED BY RN THIS SHIFT, NO OPENINGS. AREA IS DARK IN COLOR. BLANCHABLE. SPOUSE DENIES PT HAVING OLD WOUND.
[2024-07-19] MEDS ORDERED: NS 1,000 ML IV SCH (18:00)
[2024-07-19 19:17] VITALS: BP 140/96
[2024-07-20 03:11] VITALS: BP 116/90
--- NOTE | 2024-07-20 03:55 | NUR ---
SHIFT SUMMARY ADMITTED FOR TOXIC METABOLIC ENCEPHALOPATHY. DNR CODE. ISOLATION PRECAUTIONS FOR ESBL IN URINE. NPO DUE TO SOMNOLENCE. HE IS ON BEDREST. CONDOM CATHETER IN PLACE. ACHS CBG'S - NO SS. PALLIATIVE CARE IS CONSULTED. NS INFUSING ORDERED. ON RA. ANOTHER SET OF BLOOD CULTURES HAS BEEN SENT. IV ANTIB RX ARE SCHEDULED.
[2024-07-20 06:59] LABS: BASOPHILS ABSOLUTE AUTO 0.01 K/mm3 (0.00-0.23); BASOPHILS PERCENT AUTO 0 % (0-2); EOSINOPHILS ABSOLUTE AUTO 0.04 K/mm3 (0.00-0.68); EOSINOPHILS PERCENT AUTO 1 % (0-6); Hematocrit 30.3 % (37.0-53.0); Hemoglobin 9.8 g/dL (13.5-17.5); IMMATURE GRAN ABSOLUTE AUTO 0.03 K/mm3 (0.00-0.10); IMMATURE GRAN PERCENT AUTO 0 % (0-1); LYMPHOCYTES ABSOLUTE AUTO 0.58 K/mm3 (0.84-5.20); LYMPHOCYTES PERCENT AUTO 7 % (21-46); MONOCYTES ABSOLUTE AUTO 0.36 K/mm3 (0.16-1.47); MONOCYTES PERCENT AUTO 4 % (4-13); Mean Corpuscular HGB Conc 32.3 g/dL (31.5-36.5); Mean Corpuscular Volume 90 fL (80-100); Mean Platelet Volume 11.6 fL (9.1-12.4); NEUTROPHILS ABSOLUTE AUTO 7.16 K/mm3 (1.96-9.15); NEUTROPHILS PERCENT AUTO 88 % (41-73); Platelet Count 124 K/mm3 (150-400); RDW Standard Deviation 45.6 fL (35.1-46.3); Red Blood Cell Count 3.38 M/mm3 (4.30-5.90); White Blood Cell Count 8.18 K/mm3 (4.00-11.30)
[2024-07-20 07:17] LABS: Albumin, Blood 2.2 g/dL (3.4-5.0); Albumin/Globulin Ratio 0.6 (0.8-1.8); Bilirubin, Total 0.4 mg/dL (0.1-1.0); Calcium, Blood 7.9 mg/dL (8.5-10.1); Creatinine, Blood 1.5 mg/dL (0.60-1.20); Globulin, Blood 3.7 g/dL (2.2-4.0); Potassium, Blood 3.9 mmol/L (3.5-5.5); Total Protein, Blood 5.9 g/dL (6.4-8.2)
[2024-07-20 07:40] LABS: RETICULOCYTE ABSOLUTE 0.0247 M/mm3 (0.0200-0.1100); RETICULOCYTE COUNT PERCENT 0.73 % (0.50-2.50)
[2024-07-20 07:46] VITALS: BP 131/99
[2024-07-20] MEDS ORDERED: NS 1,000 ML IV SCH (08:00)
[2024-07-20 08:12] LABS: Percent Saturation 6.7 % (20.0-50.0)
--- NOTE | 2024-07-20 10:49 | NUR ---
THIS RN ATTEMPTED TO ASSESS SWALLOW PER ST RECOMMENDATIONS ON GREEN SHEET IN ROOM PER PROIVDER ORDERS. PT UNABLE TO SIP FLUIDS FROM STRAW, PT COULD NOT FOLLOW DIRECTION WHEN INSTRUCTED TO PLACE LIPS AROUND STRAW AND SUCK. RN PROVIDED ORAL CARE WITH GREEN SPONGE, PT ALSO UNABLE TO FOLLOW INSTRUCTION TO SUCK ON SPONGE. RN DOES NOT FIND PT APPROPRIATE TO SAFELY SWALLOW AT THIS TIME.
--- NOTE | 2024-07-20 11:42 | NUR ---
Met with patient and yesterday afternoon. The patient was quite somnolent yesterday, which Dr. Low attributes to bacteremia which is being treated. The patient was NPO yesterday due to the somnolence but is ok to eat when he is awake and alert. is meeting with Isma weir today to discuss hospice. However, the patient will be going to rehab for continued IV abx for 6 days. At that point, eval with hospice will be more appropriate once bacteremia is cleared. Will update [facility] and Diane with [facility].
--- NOTE | 2024-07-20 16:47 | NUR ---
SHIFT SUMMARY PT MORE ALERT AND AWAKE TODAY, ABLE TO MAKE SOME NEEDS KNOWN AND RESPONSIVE TO VERBAL STIMULI. PT DOES HAVE MOMENTS OF IRRITATION, DID THREATEN THIS RN WITH SHOTGUN. FAMILY MET WITH [facility] AND PALLIATIVE CARE TEAM, FAMILY STILL CONSIDERING OPTIONS. PLAN IS FOR PT TO POSSIBLY GO TO SNF FOR IV ANTIBIOTICS PRIOR TO [place]. ST WORKED WITH PT AND REMOVED STRAWS FROM DIET AND ADDED THICKEN LIQUIDS. PT WILL BE FEEDER. WILL ATTEMPT TO FEED PT DINNER IF AWAKE ENOUGH TO FOLLOW INSTRUCTION. PT REMAINS ON NS @ 150 ML AN HR, AFTER THIS BAG ADMINISTERED IV WILL BE SALINE LOCKED. MEPILEX ON COCCYX REMAINS C/D/I. CONDOM CATH CHANGED TODAY, PATENT AND DRAINING CLEAR YELLOW URINE. SCD IN PLACE. BED ALARM ON. PT SLEEPING WITH BED IN LOWEST POSITON AND CALL LIGHT WITHIN REACH. PT DOES NOT USE CALL LIGHT APPROPRIATELY.
[2024-07-20 17:00] VITALS: BP 158/109
[2024-07-20 20:00] VITALS: BP 154/97
[2024-07-21 02:16] VITALS: BP 164/85
--- NOTE | 2024-07-21 04:24 | NUR ---
SHIFT SUMMARY ADMITTED FOR TOXIC METABOLIC ENCEPHALOPATHY. DNR CODE. FOUND TO HAVE A UTI. CONTACT [facility] FOR ESBL IN THE URINE. CONDOM CATHETER IN PLACE. HE IS ON BEDREST. HE IS ON AN ADA DIET, EXCEPT WHEN HE IS NOT ALERT. ACHS - CBG'S. ON RA. A&O TO SELF AND FAMILY. IV ANTIB RX ARE SCHEDULED. PLAN IS FOR PLACEMENT AT [facility] TO FINISH ANTIB RX, FOLLOWED BY A RETURN TO [place].
[2024-07-21 06:26] LABS: BASOPHILS ABSOLUTE AUTO 0.01 K/mm3 (0.00-0.23); BASOPHILS PERCENT AUTO 0 % (0-2); EOSINOPHILS PERCENT AUTO 3 % (0-6); Hematocrit 27.6 % (37.0-53.0); Hemoglobin 9.1 g/dL (13.5-17.5); IMMATURE GRAN ABSOLUTE AUTO 0.02 K/mm3 (0.00-0.10); IMMATURE GRAN PERCENT AUTO 0 % (0-1); LYMPHOCYTES ABSOLUTE AUTO 0.61 K/mm3 (0.84-5.20); LYMPHOCYTES PERCENT AUTO 9 % (21-46); MONOCYTES ABSOLUTE AUTO 0.47 K/mm3 (0.16-1.47); MONOCYTES PERCENT AUTO 7 % (4-13); Mean Corpuscular HGB 28.3 pg (26.0-34.0); Mean Corpuscular Volume 86 fL (80-100); Mean Platelet Volume 10.5 fL (9.1-12.4); NEUTROPHILS ABSOLUTE AUTO 5.51 K/mm3 (1.96-9.15); NEUTROPHILS PERCENT AUTO 81 % (41-73); Platelet Count 153 K/mm3 (150-400); RDW Coefficient Variation 13.8 % (11.7-14.2); RDW Standard Deviation 43.9 fL (35.1-46.3); Red Blood Cell Count 3.22 M/mm3 (4.30-5.90); White Blood Cell Count 6.82 K/mm3 (4.00-11.30)
[2024-07-21 06:50] LABS: Bun/Creatinine Ratio 24.1 (12.0-20.0); Calcium, Blood 8.1 mg/dL (8.5-10.1); Creatinine, Blood 1.33 mg/dL (0.60-1.20); Potassium, Blood 3.6 mmol/L (3.5-5.5)
[2024-07-21 07:36] VITALS: BP 144/64
[2024-07-21] MEDS ORDERED: NS 250 ML IV PRN (08:55)
[2024-07-21] MEDS ORDERED: MEROPENEM1 G1 IV (12:40)
--- NOTE | 2024-07-21 14:16 | NUR ---
DISCHARGE NOTE PT D/C TO [facility] AT 1355. PT A&O TO SELF ONLY, VSS, TRANSFERRED FROM BED TO [facility] [place] BY SLIDE [place]ET, TOLERATING PO, VOIDING, AND DENIED PAIN. PT ATTEMPT TO WORK W/ PHYSICAL THERAPY UNSUCCESSFUL, SEE THERAPY NOTES. DISCHARGE PACKET AND PT'S BELONGINGS GIVEN TO TRANSPORT. RAYNE POWERGLIDE PLACED THIS AM AND REMAINED IN PLACE FOR IV ABX AT [facility]. PT ESCOURTED OUT VIA [facility] [place] TRANSPORT. THIS RN CALLED [facility] AND GAVE REPORT TO JOHNY WALTERS.
== END 2024-07-21 13:58 | DRG 689 ==
LOC: ER 11:04 → MEDS 14:52
PROVIDERS: Emergency Medicine; Internal Medicine; Student in an Organized Health Care Education/Training Program; ADMIT Hospitalist
DX: N39.0 Urinary tract infection, site not specified (principal); G92.8 Other toxic encephalopathy; R78.81 Bacteremia; Z16.12 Extended spectrum beta lactamase (ESBL) resistance; Z16.24 Resistance to multiple antibiotics; G20.A1 Parkinson's disease without dyskinesia, without mention of fluctuations; G30.9 Alzheimer's disease, unspecified; F02.80 Dementia in other diseases classified elsewhere, unspecified severity, without behavioral disturbance, psychotic disturbance, mood disturbance, and anxiety; Z66 Do not resuscitate; R13.10 Dysphagia, unspecified; E78.5 Hyperlipidemia, unspecified; E11.22 Type 2 diabetes mellitus with diabetic chronic kidney disease; I12.9 Hypertensive chronic kidney disease with stage 1 through stage 4 chronic kidney disease, or unspecified chronic kidney disease; N18.32 Chronic kidney disease, stage 3b; B96.89 Other specified bacterial agents as the cause of diseases classified elsewhere; D64.9 Anemia, unspecified; Z87.440 Personal history of urinary (tract) infections; Z88.0 Allergy status to penicillin; Z88.8 Allergy status to other drugs, medicaments and biological substances; Z91.041 Radiographic dye allergy status; Z79.4 Long term (current) use of insulin
CPT/HCPCS: 36415; 70450; 71045; 80048; 80053; 81001; 82607; 82728; 82746; 82947; 83540; 83550; 83605; 85025; 85045; 87040; 87077; 87086; 87186; 92526; 92610; 97112; 97162; 97166; 97530; 99284; A9270; J1650; J2185; J7030

== ENCOUNTER 2024-08-05 17:24 | Inpatient (IN) | payer MEDICARE, OTHER ==
[~2024-08-05] VITALS: Ht 172.7 cm; Wt 63.5 kg
[~2024-08-05 17:24] MED LIST changes: +ACET500 PO; +LOPE2C PO; +MELA3 PO; +MEROPENEM1 G1 IV; +MIRT30 PO; +Mucinex600 MG PO; +PROBIOTIC1 EA15; +PSYLLIUM PO
[2024-08-05 17:46] LABS: BASOPHILS ABSOLUTE AUTO 0.02 K/mm3 (0.00-0.23); BASOPHILS PERCENT AUTO 0 % (0-2); EOSINOPHILS ABSOLUTE AUTO 0.01 K/mm3 (0.00-0.68); EOSINOPHILS PERCENT AUTO 0 % (0-6); Hematocrit 33.2 % (37.0-53.0); Hemoglobin 10.7 g/dL (13.5-17.5); IMMATURE GRAN ABSOLUTE AUTO 0.03 K/mm3 (0.00-0.10); IMMATURE GRAN PERCENT AUTO 0 % (0-1); LYMPHOCYTES ABSOLUTE AUTO 1.45 K/mm3 (0.84-5.20); LYMPHOCYTES PERCENT AUTO 15 % (21-46); MONOCYTES ABSOLUTE AUTO 0.81 K/mm3 (0.16-1.47); MONOCYTES PERCENT AUTO 8 % (4-13); Mean Corpuscular HGB 28.7 pg (26.0-34.0); Mean Corpuscular HGB Conc 32.2 g/dL (31.5-36.5); Mean Corpuscular Volume 89 fL (80-100); Mean Platelet Volume 10.9 fL (9.1-12.4); NEUTROPHILS ABSOLUTE AUTO 7.58 K/mm3 (1.96-9.15); NEUTROPHILS PERCENT AUTO 77 % (41-73); Platelet Count 217 K/mm3 (150-400); RDW Coefficient Variation 14.8 % (11.7-14.2); RDW Standard Deviation 48.4 fL (35.1-46.3); RETICULOCYTE ABSOLUTE 0.0228 M/mm3 (0.0200-0.1100); RETICULOCYTE COUNT PERCENT 0.61 % (0.50-2.50); Red Blood Cell Count 3.73 M/mm3 (4.30-5.90)
[2024-08-05 18:02] LABS: Albumin, Blood 2.5 g/dL (3.4-5.0); Albumin/Globulin Ratio 0.5 (0.8-1.8); Bilirubin, Total 0.5 mg/dL (0.1-1.0); Bun/Creatinine Ratio 32.6 (12.0-20.0); Calcium, Blood 9.4 mg/dL (8.5-10.1); Creatinine, Blood 2.15 mg/dL (0.60-1.20); Globulin, Blood 4.7 g/dL (2.2-4.0); Potassium, Blood 4.4 mmol/L (3.5-5.5); Total Protein, Blood 7.2 g/dL (6.4-8.2)
[2024-08-05] MEDS ORDERED: NS 1,000 ML IV SCH (18:20)
[2024-08-05] MEDS ORDERED: Ondansetron HCl 2 MG / ML 2ML Vial IV PRN (21:05)
[2024-08-05] MEDS ORDERED: Acetaminophen 325 MG TABLET PO PRN (21:05)
[2024-08-05] MEDS ORDERED: Melatonin 3 MG Tab PO PRN (21:10)
[2024-08-05] MEDS ORDERED: OLANZapine 5 MG Tab PO PRN (21:10)
[2024-08-05 21:21] LABS: Percent Saturation 16.7 % (20.0-50.0)
[2024-08-05 22:36] LABS: Hematocrit 30.7 % (37.0-53.0); Hemoglobin 9.9 g/dL (13.5-17.5)
[2024-08-05] MEDS ORDERED: Lactated Ringer's 1,000 ML IV SCH (22:54)
--- NOTE | 2024-08-05 23:15 | NUR ---
PT ADMITTED TO FLOOR VIA GURNEY FROM ER. PT TRANSFERRED WITH 3 PEOPLE TO MEDICAL FLOOR BED. PT IS INCONTINENT OF URINE/BM - BROWN SOFT BM, MEDIUM IN SIZE. PT IS NON-VERBAL, RESPONDS TO PAIN. PT HAS PARKINSON'S. I SPOKE TO PT'S , CARTER - WHO HAD ALOT TO SAY ABOUT PT'S CARE (AT VARIOUS FACILITIES) AND LACK OF COMMUNICATION, AND MANY OTHER VARIOUS CONCERNS. CARTER PROVIDED THE ADMIT INFORMATION. AFTER THIS CONVERSATION ENDED, (AFTER APPX 45 MINUTES) I GAVE REPORT TO DARELL QUIROZ WHO IS ASSUMING CARE.
[2024-08-05 23:23] VITALS: BP 142/88
[2024-08-05] MEDS ORDERED: SENN187 PO (23:58)
[2024-08-06 04:07] VITALS: BP 130/90
--- NOTE | 2024-08-06 05:47 | NUR ---
SHIFT SUMMARY PT ADMITTED FOR ACUTE ON CHRONIC RENAL FAILURE. PT IS ALERT AND ORIENTED TIMES 2 NON VERBAL. HX OF DEMENTIA, PARKINSON S, HTN, NEPHROLOTHIASIS, AND RECURRENT UTI S. PER REHAB FACILITY BRIGHT RED BLOOD FOLLOWED BY DARK RED BLOOD IN STOOL. PT REPORTS LOWER ABDOMINAL PAIN FOR 3 DAYS. PT HAS CONDOM CATH IN PLACE FOR URINE LAB. BED IN LOW POSITION, CALL LIGHT WITHIN REACH, RAILS TIMES 2.
[2024-08-06] MEDS ORDERED: Pantoprazole Sodium 40 MG Injection IV SCH (06:00)
[2024-08-06 06:29] LABS: Hematocrit 30.7 % (37.0-53.0); Hemoglobin 9.9 g/dL (13.5-17.5)
[2024-08-06 07:00] LABS: Albumin, Blood 2.3 g/dL (3.4-5.0); Albumin/Globulin Ratio 0.5 (0.8-1.8); Bilirubin, Total 0.5 mg/dL (0.1-1.0); Bun/Creatinine Ratio 36.3 (12.0-20.0); Calcium, Blood 8.8 mg/dL (8.5-10.1); Creatinine, Blood 1.9 mg/dL (0.60-1.20); Globulin, Blood 4.4 g/dL (2.2-4.0); Magnesium, Blood 2.1 mg/dL (1.6-2.4); Potassium, Blood 3.9 mmol/L (3.5-5.5); Total Protein, Blood 6.7 g/dL (6.4-8.2)
[2024-08-06 07:58] VITALS: BP 129/80
[2024-08-06] MEDS ORDERED: Levodopa/Carbidopa 100 / 25 MG Tab PO SCH (09:00)
[2024-08-06] MEDS ORDERED: Atorvastatin 10 MG Tab PO SCH (09:00)
[2024-08-06] MEDS ORDERED: Memantine HCL 5 MG Tab PO SCH (09:00)
[2024-08-06 12:13] LABS: Hematocrit 32.9 % (37.0-53.0); Hemoglobin 10.5 g/dL (13.5-17.5)
[2024-08-06] MEDS ORDERED: Sod Ferric Gluc Complx/Sucrose 125 MG in NS 100 ML IV SCH (13:00)
[2024-08-06] MEDS ORDERED: NS 250 ML IV PRN (13:55)
[2024-08-06 16:21] VITALS: BP 113/87
--- NOTE | 2024-08-06 17:26 | NUR ---
SHIFT SUMMARY PT AOX3/4, COOPERATIVE, HAS DIFFICULT TIME MAKING NEEDS KNOWN. PT DOES HAVE CONDOM CATH CURRENLTY FOR URINE CATCH THAT WAS PROCESS EARLY THIS SHIFT, DID NOT TAKE OFF PT DID NOT FIND IT IRRITATING. PT DID HAVE DIFFIUCLT TIME BEING ALERT ENOUGH TO TAKE PO MEDS. MD WAS ABLE TO AROUSE PT ENOUGH TO TAKE MEDS WITH PUDDING. CANNOT AROUSE PT FOR MEDICATION AND DO NO FIND IT SAFE ENOGUH WELL. PT HAS NOT BEEN OUT OF BED FOR SHIFT, ON MINCED AND MOIST DIET CURRENTLY FOR ASPIRATION RISK. LR RUNNING CURRENLTY. CBGS SWITCHED FROM Q6 TO ACHS. BED IN LOWEST POSITION, CALL LIGHT WITHIN REACH.
[2024-08-06 20:19] VITALS: BP 120/81
[2024-08-06] MEDS ORDERED: Mirtazapine 30 MG Tab PO SCH (21:00)
[2024-08-06] MEDS ORDERED: Donepezil HCl 5 MG Tab PO SCH (21:00)
[2024-08-06] MEDS ORDERED: Insulin Regular 100 UNIT/ML 10ML Vial SC SCH ×2 (21:00)
[2024-08-06 23:08] VITALS: BP 117/72
[2024-08-06 23:42] LABS: Base Excess Venous 3.4 mmol/L; Bicarbonate Venous 27.7 mmol/L (24.0-30.0); PCO2 Venous 30.8 mmHg (38-42); pH Blood Venous 7.54 (7.34-7.37)
[2024-08-07 04:33] VITALS: BP 119/73
--- NOTE | 2024-08-07 06:32 | NUR ---
SHIFT SUMMARY PT ADMITTED FOR ACUTE ON CHRONIC RENAL FAILURE. PT IS ALERT AND ORIENTED TIMES 1 NON VERBAL. SPOKE TO BEFORE HER LEAVING REGARDING CHANGE IN DIET CHANGE ORDER ( GOING FROM PUREE TO SOFT BITE) STATED SHE WOULD FEED PT, SIGN WAVER, WHATEVER SHE NEEDS TO DO, AND THAT PT NORMALLY HAS A VERY GOOD APPETITE, AND AT TIMES IS ABLE TO FEED HIMSELF. ADVISED HER THAT I WOULD LOOK INTO THIS CHANGE. UPDATEPT FOUND UNRESPONSIVE WHEN HS MED PASS DONE. CALLED SEVERAL TIMES BY NAME, GENTLE SHOULDER TOUCH, THREE ATTEMPS MOSHER RUB, THEN GOT VERY MIN RESPONSE ( PT TURNED HEAD SLIGHTLY) NO MOVEMENT OF UPPER/ LOWER EXTREMETIES OR FACIAL EXPRESSION, UNLIKE PRIOR NIGHT PT RESPONDED WHEN CALLED BY NAME OR OR TOUCH ON SHOULDER AND VERBALLY EXPLAINING WHY STAFF WAS HERE AND WHAT THEY WERE NEEDING TO DO). PT S PUPILS AT 1MM. PAD MACHINE OFFBEARER CONTACTED OBTAINED ORDER FOR CT HEAD AND VBG. CRITAL PH AT 7.54. PAD MACHINE OFFBEARER NOTIFIED AND CLOSELY MONITORING. LABS WILL BETAKEN AT [address] RESULTS IN CHART. BED CHANGE DONE, TRACE BLOOD IN URINE AND IN STOOL. AWAITING H/H RESULTS. PT CONDOM CATH REPLACED. COCCYX CLEANED AND DRESSING CHANGED. DENTAL HYGIENIST ORDER ENTERED. BED IN LOW POSITION, CALL LIGHT WITHIN REACH, RAILS TIMES 2.
[2024-08-07 07:08] LABS: Hematocrit 30.9 % (37.0-53.0); Hemoglobin 9.8 g/dL (13.5-17.5); Mean Corpuscular HGB 27.9 pg (26.0-34.0); Mean Corpuscular HGB Conc 31.7 g/dL (31.5-36.5); Mean Corpuscular Volume 88 fL (80-100); Mean Platelet Volume 10.3 fL (9.1-12.4); Platelet Count 215 K/mm3 (150-400); RDW Coefficient Variation 14.9 % (11.7-14.2); RDW Standard Deviation 47.8 fL (35.1-46.3); Red Blood Cell Count 3.51 M/mm3 (4.30-5.90); White Blood Cell Count 7.57 K/mm3 (4.00-11.30)
[2024-08-07 07:34] LABS: Bun/Creatinine Ratio 32.8 (12.0-20.0); Calcium, Blood 8.5 mg/dL (8.5-10.1); Creatinine, Blood 2.04 mg/dL (0.60-1.20)
[2024-08-07] MEDS ORDERED: Dextrose 5% 1,000 ML IV SCH ×2 (08:20→19:00)
[2024-08-07 08:29] VITALS: BP 116/103
[2024-08-07] MEDS ORDERED: Insulin Human Lispro 100 Units/ML 3ML Syringe SC SCH (12:00)
--- NOTE | 2024-08-07 13:15 | NUR ---
PALLIATIVE CARE NOTE: SPOKE TO SPOUSE CARTER ON THE PHONE. CARTER STATES SHE MET WITH ILEANA FROM [facility] THIS MORNING AND SHE IS CHOOSING TO PLACE [facility] ON HOSPICE SERVICES AT THIS TIME. CARTER DECLINES A VISIT FROM AT THIS TIME SINCE SHE ALREADY SPOKE TO ILAENA. UPDATED CM WITH POC.
[2024-08-07 16:43] VITALS: BP 131/87
--- NOTE | 2024-08-07 18:20 | NUR ---
SHIFT SUMMARY: PT EXTREMELY LETHARGIC THIS SHIFT. STERNAL RUBBED SEVERAL TIMES WITH MINIMAL RESPONSE. BED BATH PROVIDED THIS SHIFT. STAGE 2 TRANSITIONING TO 3 NOTED ON COCCYX. CLEANSED, BARRIER CREAM APPLIED, AND COVERED WITH COCCYX MEPILEX. PICTURE TAKEN AND SHOWN TO DR. CERON. WOUND DRESSING ORDERS ENTERED. FAMILY IN ROOM T/O SHIFT. PLAN TO LEAVE AROUND 1100 TOMORROW 08/08/24 ON HOSPICE SERVICES. PT NOT AWAKE ENOUGH FOR PO INTAKE INCLUDING PILLS. D5 DRIP ORDERED AND GIVEN. PER DR. CERON, STOP FLUIDS FOR NOW AND WILL START ON MAINTENANCE FLUIDS. CALL LIGHT IN REACH. FAMILY AT BEDSIDE.
[2024-08-07 19:25] VITALS: BP 130/91
[2024-08-08 02:49] VITALS: BP 119/74
--- NOTE | 2024-08-08 03:59 | NUR ---
SHIFT SUMMARY NO ACUTE EVENTS DURING THIS SHIFT. PT CONTINUES TO BE LETHARGIC, RESPONDS TO Q2HR REPOSTIONING. CONDOM CATH REMOVED D/T LEAKING, GOOD URINE OUTPUT. ATTENDS IN PLACE. Q6HR B @MIDNIGHT. D5 INFUSING ORDERED. MEPILEX CHANGED TO COCCYX AREA. BED AT THE LOWEST POSITION, CALL LIGHT W/I REACH. FREQUENT CHECKS BY THE BEDSIDE.
[2024-08-08 05:42] LABS: Bun/Creatinine Ratio 28.7 (12.0-20.0); Calcium, Blood 8.5 mg/dL (8.5-10.1); Creatinine, Blood 2.09 mg/dL (0.60-1.20); Potassium, Blood 3.8 mmol/L (3.5-5.5)
[2024-08-08 07:20] VITALS: BP 120/82
[2024-08-08] MEDS ORDERED: DOCU100 PO (10:21)
[2024-08-08] MEDS ORDERED: MIRALAX17 GM PO (10:21)
--- NOTE | 2024-08-08 12:41 | NUR ---
DISCHARGE 1100 UNABLE TO ASSESS PT ORIENTATION. PT CANNOT FOLLOW DIRECTIONS. TRANSFERRED TO [facility] VIA SLIDE SHEET. PT FAMILY MEMBER NOTIFIED OF DISCHARGE TO [place].. IV DC'D BY THIS RN.
== END 2024-08-08 11:10 | disposition hospice, home (50) | DRG 682 ==
LOC: ER 17:24 → ERHOLD 17:25 → MEDS 17:25
PROVIDERS: Emergency Medicine; Internal Medicine; ADMIT Student in an Organized Health Care Education/Training Program
DX: N17.9 Acute kidney failure, unspecified (principal); E43 Unspecified severe protein-calorie malnutrition; L89.153 Pressure ulcer of sacral region, stage 3; G93.41 Metabolic encephalopathy; E87.0 Hyperosmolality and hypernatremia; R64 Cachexia; K92.1 Melena; Z51.5 Encounter for palliative care; Z66 Do not resuscitate; N18.30 Chronic kidney disease, stage 3 unspecified; D63.1 Anemia in chronic kidney disease; D50.9 Iron deficiency anemia, unspecified; G30.9 Alzheimer's disease, unspecified; F02.80 Dementia in other diseases classified elsewhere, unspecified severity, without behavioral disturbance, psychotic disturbance, mood disturbance, and anxiety; G20.A1 Parkinson's disease without dyskinesia, without mention of fluctuations; E11.22 Type 2 diabetes mellitus with diabetic chronic kidney disease; I12.9 Hypertensive chronic kidney disease with stage 1 through stage 4 chronic kidney disease, or unspecified chronic kidney disease; E78.5 Hyperlipidemia, unspecified; E86.0 Dehydration; K59.00 Constipation, unspecified; E11.65 Type 2 diabetes mellitus with hyperglycemia; Z88.0 Allergy status to penicillin; Z88.8 Allergy status to other drugs, medicaments and biological substances; Z79.4 Long term (current) use of insulin; Z68.21 Body mass index [BMI] 21.0-21.9, adult
CPT/HCPCS: 36415; 70450; 74176; 76770; 80048; 80053; 82570; 82728; 82803; 82947; 83540; 83550; 83690; 83735; 84300; 85014; 85018; 85025; 85027; 85045; 86850; 86900; 86901; 93005; 93010; 96360; 96361; 96365; 99285-25; A9270; G0378; J1815; J2470; J2916; J7030; J7050; J7070; J7120